=== PATIENT | male | born 1970 | race Caucasian/White ===

== ENCOUNTER 2017-01-14 22:40 | Emergency (ER) | payer SELFPAY ==
[~2017-01-14] VITALS: Ht 172.7 cm; Wt 81.6 kg
[2017-01-14 22:42] VITALS: BP 138/82
[2017-01-14] MEDS ORDERED: KETOROLAC 30 MG/ML VIAL IVP ONE (23:20)
[2017-01-14] MEDS ORDERED: NACL 0.9% 1,000 ML IV ONE (23:20)
[2017-01-15 00:29] LABS: HEMATOCRIT 42.1 % (36-52); HEMOGLOBIN 14.1 g/dL (12.0-18.0); MEAN CORPUSCULAR HEMOGLOBIN 32 pg (27-31); MEAN CORPUSCULAR HGB CONC 34 g/dL (33-37); MEAN CORPUSCULAR VOLUME 95 fL (80-94); PLATELET COUNT (AUTO) 99 K/uL (140-450); RED BLOOD CELL COUNT(AUTO) 4.44 MIL/uL (4.20-6.10); RED CELL DISTRIBUTION WIDTH 13.1 % (11.6-13.7); WHITE BLOOD COUNT (AUTO) 7.3 K/uL (4.8-10.8)
[2017-01-15 00:37] LABS: EOSINOPHILS % (MANUAL) 3 % (0-4); LYMPHOCYTES % (MANUAL) 10 % (20-46); MONOCYTES % (MANUAL) 10 % (5-12); NEUTROPHILS % (MANUAL) 77 (43-65)
[2017-01-15 00:40] LABS: ANION GAP 11.7 (8-16); CALCIUM 8.8 mg/dL (8.5-10.1); CARBON DIOXIDE 27.6 mmol/L (21-32); CREATININE 0.9 mg/dL (0.7-1.3); POTASSIUM 3.3 mmol/L (3.5-5.1)
[2017-01-15 00:48] LABS: ALBUMIN 3.5 g/dL (3.4-5.0); PARTIAL THROMBOPLASTIN TIME 25.8 secs (22-35.6); PROTHROMBIN TIME 10.4 secs (10.8-13.4); TOTAL PROTEIN, SERUM 7.6 g/dL (6.4-8.2)
[2017-01-15 01:19] LABS: AMPHETAMINE, URINE NEGATIVE ng/ml (NEG <=1000); BARBITURATE, URINE NEGATIVE ng/ml (NEG <=200); BENZODIAZEPINE, URINE NEGATIVE ng/mL (NEG <=200); COCAINE, URINE NEGATIVE ng/mL (NEG <=300); OPIATE, URINE NEGATIVE ng/mL (NEG <=2000); PHENCYCLIDINE SCREEN,URINE NEGATIVE ng/mL (NEG <=25)
[2017-01-15 01:22] LABS: CANNABINOID, URINE POSITIVE ng/mL (NEG <=50)
[2017-01-15] MEDS ORDERED: LIDOCAINE 1% 500 MG/50 ML VIAL INJ ONE (01:45)
[2017-01-15] MEDS ORDERED: NEOMYCIN/POLYMYXIN/BACITRACIN 0.9 GM/1 PKT TP ONE (02:12)
[2017-01-15] MEDS ORDERED: CLINDAMYCIN 150 MG CAP PO ONE (02:20)
[2017-01-15] MEDS ORDERED: CEPHALEXIN 500 MG CAP PO ONE (02:20)
[2017-01-15] MEDS ORDERED: fentaNYL 0.05 MG/ML VIAL IVP ONE (03:30)
[2017-01-15] MEDS ORDERED: CLINDAMYCIN 900 MG in DEXTROSE 5% 100 ML IV ONE (06:20)
[2017-01-15] MEDS ORDERED: AMPICILLIN/SULBACTAM 3 GM in NACL 0.9% 100 ML IV ONE (06:20)
[2017-01-15] MEDS ORDERED: AMPICILLIN/SULBACTAM 3 GM VIAL ONE (06:31)
[2017-01-15] MEDS ORDERED: CLINDAMYCIN 900 MG/6 ML VIAL IV ONE (06:31)
[2017-01-15 07:28] VITALS: BP 111/72
== END 2017-01-15 07:34 | disposition short-term general hospital (02) ==
LOC: MED 22:40 → EDBD 22:40 → MED 01-15 07:34
DX: S02.19XB Other fracture of base of skull, initial encounter for open fracture (principal); S02.0XXB Fracture of vault of skull, initial encounter for open fracture; L02.01 Cutaneous abscess of face; M54.2 Cervicalgia; Y04.2XXA Assault by strike against or bumped into by another person, initial encounter; Y93.89 Activity, other specified; Y99.8 Other external cause status; Y92.89 Other specified places as the place of occurrence of the external cause
CPT/HCPCS: 10060; 12014; 36415; 70450; 70486; 72125; 80053; 80305; 85025; 85610; 85730; 96361; 96365; 96375; 99285; G0482; J0295; J1885; J2001; J3010; J3490; J7030

== ENCOUNTER 2017-06-25 01:01 | Emergency (ER) | payer OTHER ==
[~2017-06-25] VITALS: Ht 185.4 cm; Wt 76.2 kg
[2017-06-25 01:01] VITALS: BP 128/55
--- NOTE | 2017-06-25 01:01 | NUR ---
PATIENT TO ER OF.
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
--- NOTE | 2017-06-25 01:11 | NUR ---
[facility] TO ER BED 1
--- NOTE | 2017-06-25 01:20 | NUR ---
PT IN BED #1 WITH [place] OFFICER AT BEDSIDE. VSS STABLE. PT IS AGITATED BU COOPERATIVE. AWARE. CONTINUE TO MONITOR.
[2017-06-25 01:53] VITALS: BP 111/81
--- NOTE | 2017-06-25 01:53 | NUR ---
PATIENT BIB [facility] [employer]. PATIENT EXAMINED BY DR. PEÑA. PATIENT MEDICALLY CLEARED AND RELEASED IN CUSTODY IN STABLE CONDITION. ORIGINAL PRE-BOOK FORM GIVEN TO OFFICER NEAL.
== END 2017-06-25 01:53 ==
LOC: MED 01:01
DX: S31.133A Puncture wound of abdominal wall without foreign body, right lower quadrant without penetration into peritoneal cavity, initial encounter (principal); S60.512A Abrasion of left hand, initial encounter; S80.212A Abrasion, left knee, initial encounter; S80.211A Abrasion, right knee, initial encounter; S30.811A Abrasion of abdominal wall, initial encounter; Z88.0 Allergy status to penicillin; X58.XXXA Exposure to other specified factors, initial encounter; Y93.89 Activity, other specified; Y92.89 Other specified places as the place of occurrence of the external cause; Y99.8 Other external cause status
CPT/HCPCS: 99283